=== PATIENT | female | born 1995 | race Caucasian/White ===

== ENCOUNTER 2016-09-13 21:00 | Emergency (ER) | payer OTHER ==
[2016-09-13 21:36] VITALS: BP 117/67; PULSE 63; TEMP 98.3; BMI 25.0
--- NOTE | 2016-09-13 23:56 | PDOC ---
History of Present Illness - General Chief Complaint: Injury Stated Complaint: ANKLE PAIN Time Seen by Provider: 09/13/16 23:40 History Source: Patient - History of Present Illness Initial Comments: 09/13/16 23:55 20 year female with left ankle injury while jumping. reports feeling twist. now pain with weight bearing. limited rom to left ankle. mild swelling. denies past medical history Past History - Past Medical History Allergies/Adverse Reactions: Allergies Allergy/AdvReac Type Severity Reaction Status Date / Time No Known Allergies Allergy Verified 09/13/16 21:36 Home Medications: Ambulatory Orders Ondansetron [Zofran Odt -] 4 mg SL TID PRN #21 od.tablet 02/07/16 Sucralfate [Carafate -] 1 gm PO QID #12 tablet 02/07/16 - Immunization History Immunization Up to Date: Yes - Psycho/Social/Smoking Cessation Hx Anxiety: No Suicidal Ideation: No Smoking History: Never smoked Have you smoked in the past 12 months: No Information on smoking cessation initiated: No Hx Alcohol Use: No Drug/Substance Use Hx: No Substance Use Type: None Review of Systems - Review of Systems Able to Perform ROS?: Yes Is the patient limited [place]ish proficient: No Constitutional: No: Symptoms Reported, See HPI, Chills, Diaphoresis, Fever, Loss of Appetite, Malaise, Night Sweats, Weakness, Weight Stable, Unintentional Wgt. Loss, Unexplained wgt Loss, Other Musculoskeletal: Yes: Other (left ankle pain) *Physical Exam - Vital Signs Last Vital Signs Temp Pulse Resp BP Pulse Ox 98.3 F 63 18 117/67 100 09/13/16 21:34 09/13/16 21:34 09/13/16 21:34 09/13/16 21:34 09/13/16 21:34 - Physical Exam General Appearance: Yes: Appropriately Dressed Cardiovascular: positive: Regular Rhythm, Regular Rate Gastrointestinal/Abdominal: positive: Normal Bowel Sounds, Soft Extremity: positive: Normal Capillary Refill, Normal Inspection, Normal Range of Motion, Other (left ankle limited rom. minmal swelling . unable to fully weightbear) Integumentary: positive: Normal Color, Dry, Warm Neurologic: positive: Fully Oriented, Alert Procedures - Splinting Splint Location: Left: Ankle Progress Note - Progress Note Progress Note: A: left ankle sprain P: xray: negative splint RICE outpatient ortho follow up if needed pain control *DC/Admit/Observation/Transfer Diagnosis at time of Disposition: Left ankle sprain Qualifiers: Encounter type: initial encounter Involved ligament of ankle: unspecified ligament Qualified Code(s): S93.402A - Sprain of unspecified ligament of left ankle, initial encounter - Discharge Dispostion Disposition: HOME - Referrals Referrals: Vanessa Ross [Primary Care Provider] - Marcos López MD [Staff Physician] - - Patient Instructions Printed Discharge Instructions: DI for Ankle Sprain Additional Instructions: take tylenol/ ibuprofen for pain. follow up with your doctor as soon as possible. RICE (rest, ice , elevate - Post Discharge Activity Work/School Note: Back to Work
--- NOTE | 2016-09-13 23:58 | PDOC ---
*Physical Exam - Vital Signs Last Vital Signs Temp Pulse Resp BP Pulse Ox 98.3 F 63 18 117/67 100 09/13/16 21:34 09/13/16 21:34 09/13/16 21:34 09/13/16 21:34 09/13/16 21:34 Medical Decision Making - Medical Decision Making 09/13/16 23:58 agree with care from [facility] *DC/Admit/Observation/Transfer Diagnosis at time of Disposition: Left ankle sprain - Discharge Dispostion Disposition: HOME - Referrals Referrals: Marcos López MD [Staff Physician] - Vanessa Ross [Primary Care Provider] - - Patient Instructions Printed Discharge Instructions: DI for Ankle Sprain Additional Instructions: take tylenol/ ibuprofen for pain. follow up with your doctor as soon as possible. MARY KAY (rest, ice , elevate - Post Discharge Activity Work/School Note: Back to Work
== END 2016-09-14 01:14 | disposition home or self-care (01) ==
LOC: JERFT 21:00 → JER 21:00
DX: S93.402A Sprain of unspecified ligament of left ankle, initial encounter (principal); X50.1XXA Overexertion from prolonged static or awkward postures, initial encounter; Y93.39 Activity, other involving climbing, rappelling and jumping off; Y92.89 Other specified places as the place of occurrence of the external cause
CPT/HCPCS: 73610-TC-LT; 84703; 99281-25